=== PATIENT | female | born 1965 | race Caucasian/White ===

== ENCOUNTER 2017-06-30 07:43 | Day surgery (SDC) | payer OTHER ==
[2017-06-30] MEDS ORDERED: ONDANSETRON HCL 4 MG/2 ML SOL ONE (09:46)
[2017-06-30] MEDS ORDERED: PROPOFOL 500 MG/50 ML EMU IV ONE ×2 (09:46)
[2017-06-30] MEDS ORDERED: LIDOCAINE HCL 1% MPF SOL ONE (09:46)
[2017-06-30 10:27] VITALS: BP 119/84; PULSE 61; RESP 18; TEMP 97.4; O2SAT 97
== END 2017-06-30 11:00 | disposition home or self-care (01) | DRG 951 ==
LOC: SURG 07:43
PROVIDERS: ATTEND Surgery
DX: Z12.11 Encounter for screening for malignant neoplasm of colon (principal); K57.30 Diverticulosis of large intestine without perforation or abscess without bleeding; K62.5 Hemorrhage of anus and rectum
CPT/HCPCS: J2405; J2001; J2704